=== PATIENT | male | born 1960 | race Caucasian/White ===

== ENCOUNTER 2017-05-11 16:00 | Emergency (ER) | payer OTHER ==
[2017-05-11 16:32] VITALS: BP 140/77; PULSE 80; TEMP 97; BMI 29.7
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
== END 2017-05-11 18:30 | disposition home or self-care (01) ==
LOC: FER 16:00
DX: S16.1XXA Strain of muscle, fascia and tendon at neck level, initial encounter (principal); V43.52XA Car driver injured in collision with other type car in traffic accident, initial encounter; Y93.89 Activity, other specified; Y92.410 Unspecified street and highway as the place of occurrence of the external cause
CPT/HCPCS: 70450-TC; 72125-TC; 99281-25

== ENCOUNTER 2023-10-19 08:47 | Emergency (ER) | payer OTHER ==
[2023-10-19 08:54] VITALS: BP 139/79; PULSE 88; RESP 18; BMI 27.7
[2023-10-19 09:03] VITALS: TEMP 98.3
== END 2023-10-19 09:38 | disposition home or self-care (01) ==
LOC: JER 08:47
DX: K04.7 Periapical abscess without sinus (principal); R22.0 Localized swelling, mass and lump, head; K08.89 Other specified disorders of teeth and supporting structures
CPT/HCPCS: 99283-25

== ENCOUNTER 2025-02-16 11:48 | Emergency (ER) | payer OTHER ==
[2025-02-16 12:47] VITALS: BP 154/83; PULSE 69; RESP 16; TEMP 97.5; BMI 29.8
[2025-02-16 13:43] LABS: ABSOLUTE IMMATURE GRANULOCYTES 0.01 x10^3/uL (0.0-0.031); BASOPHILS # 0.02 x10^3/uL (0.01-0.08); EOSINOPHIL % 2.5 % (0.8-7.0); EOSINOPHILS # 0.15 x10^3/uL (0.04-0.54); HEMATOCRIT 47.8 % (40.1-51.0); HEMOGLOBIN 14.9 g/dL (13.7-17.5); MCHC 31.2 g/dl (32.3-36.5); MEAN CELL VOLUME 81.7 fl (79.0-92.2); MEAN PLT VOLUME 10.3 fl (9.4-12.4); MONOCYTE # 0.57 x10^3/uL (0.30-0.82); MONOCYTE % 9.6 % (5.3-12.2); PLATELET COUNT 251 x10^3/uL (163-337); RDW 16.1 % (12.2-16.4)
[2025-02-16] MEDS ORDERED: MECLIZINE HCL 25 MG TABLET (FP) ONE (14:07)
[2025-02-16] MEDS: MECLIZINE HCL 25 MG TABLET (FP) PO ONE (14:17)
[2025-02-16] MEDS: SODIUM CHLORIDE 0.9% 500 ML INFUS.BAG IV ONE (14:17)
[2025-02-16 14:21] LABS: POTASSIUM 4.6 mmol/L (3.5-5.1)
[2025-02-16 14:23] LABS: CALCIUM 9.6 mg/dL (8.5-10.1)
[2025-02-16 14:24] LABS: ALBUMIN 3.8 g/dl (3.4-5.0)
[2025-02-16 14:27] LABS: CREATININE 0.9 mg/dL (0.55-1.3)
[2025-02-16 14:28] LABS: BILIRUBIN,TOTAL 0.6 mg/dL (0.2-1)
== END 2025-02-16 16:04 | disposition home or self-care (01) ==
LOC: JER 11:48
DX: H81.10 Benign paroxysmal vertigo, unspecified ear (principal); J30.2 Other seasonal allergic rhinitis
CPT/HCPCS: 0241U-QW; 36415; 70450-TC; 80053; 85025; 93005; 93010; 99285-25